=== PATIENT | female | born 1940 | race Caucasian/White ===

== ENCOUNTER 2018-03-16 10:22 | Inpatient (IN) | payer MEDICAID, MEDICARE ==
[~2018-03-16] VITALS: Ht 160 cm; Wt 47.6 kg
[~2018-03-16 10:22] MED LIST: ASPI-495 PO; DIGO125T PO; DULO20CA PO
--- NOTE | 2018-03-16 10:25 | NUR ---
[id number] FROM HOME FOR CP X 2 DAYS, NITRO X 2 IN THE FIELD. PT REFUSED ASA. NAD NOTED. VSS. SEEN BY MD FOR EVAL. SAFETY AND COMFORT MEASURES PROVIDED. WILL MONITOR.
--- NOTE | 2018-03-16 10:30 | NUR ---
HUMAN RESOURCES ADMINISTRATOR AT FOR BLOOD DRAW.
[2018-03-16 10:37] LABS: BASOPHILS % (AUTO) 0.4 % (0.0-2.0); EOSINOPHILS % (AUTO) 0.2 % (0.0-6.0); HEMATOCRIT 42 % (33-45); HEMOGLOBIN 13.9 g/dL (11.5-14.8); LYMPHOCYTES % (AUTO) 14.8 % (20.0-44.0); MEAN CORPUSCULAR HEMOGLOBIN 29 PG (26.0-33.0); MEAN CORPUSCULAR HGB CONC 33 g/dl (31.0-36.0); MEAN CORPUSCULAR VOLUME 90 fL (82-100); MONOCYTES # (AUTO) 0.5 /CMM (0.1-1.30); MONOCYTES % (AUTO) 7.1 % (2.0-12.0); NEUTROPHILS # (AUTO) 5.3 /CMM (1.8-8.9); NEUTROPHILS % (AUTO) 77.5 % (43.0-81.0); PLATELET COUNT (AUTO) 224 /CMM (150-450); RDW COEFFICIENT OF VARIATION 12.9 (11.5-15.0); RED BLOOD CELL COUNT(AUTO) 4.72 MIL/uL (4.0-5.2); WHITE BLOOD COUNT (AUTO) 6.8 K/uL (4.3-11.0)
[2018-03-16 10:47] LABS: CALCIUM, SERUM 10.2 mg/dL (8.5-10.1); CARBON DIOXIDE 24 mmol/L (21-32); CHLORIDE 106 mmol/L (98-107); CREATININE 0.7 mg/dL (0.6-1.3); GLUCOSE 148 mg/dL (74-106); POTASSIUM 3.7 mmol/L (3.5-5.1); SODIUM SERUM 140 mmol/L (136-145); UREA NITROGEN, BLOOD 14 mg/dL (7-18)
[2018-03-16 10:52] LABS: ALANINE AMINOTRANSFERASE 36 U/L (12-78); ALBUMIN 3.7 g/dL (3.4-5.0); ALKALINE PHOSPHATASE 69 U/L (46-116); ASPARTATE AMINOTRANSFERASE 21 U/L (15-37); BILIRUBIN,DIRECT 0.3 mg/dL (0.0-0.2); BILIRUBIN,TOTAL 1.5 mg/dL (0.2-1.0); TOTAL PROTEIN, SERUM 7.1 g/dL (6.4-8.2)
[2018-03-16 10:54] LABS: TROPONIN I 0.124 ng/mL (0.00-0.056)
[2018-03-16 11:03] LABS: INR 1.69 (0.85-1.15)
--- NOTE | 2018-03-16 11:22 | NUR ---
PAGED BUSINESS RECORDS MANAGER FRAME WIRER DR JACOBS, TRANSFERRED CALL TO DR JIN
--- NOTE | 2018-03-16 11:26 | NUR ---
PAGED TEO WHITTEN DNP FOR PANEL ADMISSION
[2018-03-16] MEDS ORDERED: FERR325T23 PO (11:34)
[2018-03-16] MEDS ORDERED: EZET10TA14 PO (11:34)
[2018-03-16] MEDS ORDERED: LORA1TAB PO (11:34)
[2018-03-16] MEDS ORDERED: ATOR20TA PO (11:34)
[2018-03-16] MEDS ORDERED: OMEG1CAP55 PO (11:34)
[2018-03-16] MEDS ORDERED: METO-356 PO (11:34)
[2018-03-16] MEDS ORDERED: DULO20CA PO (11:34)
[2018-03-16] MEDS ORDERED: GABA-532 PO (11:34)
[2018-03-16] MEDS ORDERED: ESOM40CA PO (11:34)
[2018-03-16] MEDS ORDERED: ISOS30TA6 PO (11:34)
--- NOTE | 2018-03-16 11:49 | NUR ---
REPAGED TEO WHITTEN DNP FOR PANEL ADMISSION
--- NOTE | 2018-03-16 12:13 | NUR ---
PATIENT ASSIGNED TELE 114-2
--- NOTE | 2018-03-16 12:35 | NUR ---
REPORT GIVEN TO GORDO ORTEZ FOR TELE 114-2.
[2018-03-16 13:00] VITALS: BP 189/92
[2018-03-16 13:45] VITALS: BP 198/90
--- NOTE | 2018-03-16 13:45 | NUR ---
C/O CHEST PAIN 10/10, SBP >190,PRN NITRO GIVEN SL X2 WITH RELIEF,TEO WHITTEN NOTIFIED.
[2018-03-16 13:50] VITALS: BP 168/88
[2018-03-16 13:58] VITALS: BP 144/70
[2018-03-16] MEDS ORDERED: LORAZEPAM 1 MG TABLET PO PRN (14:00)
[2018-03-16] MEDS ORDERED: hydrALAZINE HCL 50 MG TABLET PO STA (14:00)
--- NOTE | 2018-03-16 14:00 | NUR ---
RN INITIAL NOTE PATIENT AWAKE, ALERT AND ORIENTED. SON AT BEDSIDE. PATIENT STATES PAIN IS RELIEVED AT THIS TIME. SINUS RHYTHM WITH A FIRST DEGREE BLOCK ON TELE MONITOR. RESPIRATIONS ARE EVEN AND UNLABORED. SATING WELL ON 2 LITERS NASAL CANULA. SKIN IS WARM AND DRY TO TOUCH. IV SITE FLUSHED AND PATENT. SAFETY PRECAUTIONS IMPLEMENTED: BED IN LOCKED POSITION, LOW WITH TWO SIDE RAILS UP. WILL CONTINUE TO MONITOR.
--- NOTE | 2018-03-16 14:19 | NUR ---
TEO WHITTEN SEEN AND EVALUATED PATIENT AT BEDSIDE.
[2018-03-16] MEDS ORDERED: ZOLPIDEM TARTRATE 5 MG TABLET PO PRN (14:30)
[2018-03-16] MEDS ORDERED: ONDANSETRON HCL/PF 4 MG/2 ML VIAL IVP PRN (14:30)
[2018-03-16] MEDS ORDERED: ACETAMINOPHEN 325 MG TABLET PO PRN (14:30)
[2018-03-16] MEDS: ENOXAPARIN SODIUM 40 MG/0.4 ML DISP.SYRIN SQ SCH (15:35)
[2018-03-16 16:00] VITALS: BP 143/82
--- NOTE | 2018-03-16 16:00 | NUR ---
RN NOTE PATIENT COMPLAINING OF CHEST PAIN. ONE DOSE OF NITRO SR GIVEN AND ONE DOSE OF ATIVAN.
[2018-03-16] MEDS: GABAPENTIN 100 MG CAPSULE PO SCH (16:28)
[2018-03-16 16:48] LABS: INR 0.96 (0.87-1.13)
[2018-03-16] MEDS: ASPIRIN 81 MG TAB.CHEW PO SCH (18:16)
[2018-03-16] MEDS: ISOSORBIDE DINITRATE (20MG) 20 MG TABLET PO SCH (18:16)
[2018-03-16 19:12] LABS: THYROID STIMULATING HORMONE 2.304 uIU/mL (0.358-3.74)
[2018-03-16 20:00] VITALS: BP 93/62
[2018-03-16] MEDS: hydrALAZINE HCL 25 MG TABLET PO SCH (20:24)
[2018-03-16] MEDS ORDERED: hydrALAZINE HCL 25 MG TABLET PO SCH (21:00)
[2018-03-16] MEDS: MORPHINE SULFATE INJ 2 MG/ML DISP.SYRIN IV PRN (21:20)
[2018-03-16] MEDS ORDERED: ATORVASTATIN 10 MG TABLET PO SCH (22:00)
[2018-03-17] VITALS (15 sets, daily range): BP systolic 90–121; BP diastolic 43–76
[2018-03-17] MEDS: hydrALAZINE HCL 25 MG TABLET PO SCH ×3 (04:07→20:29)
[2018-03-17] MEDS: NITROGLYCERIN 30 GM TUBE TP SCH ×4 (05:13→17:13)
[2018-03-17 06:01] LABS: BASOPHILS % (AUTO) 0.2 % (0.0-2.0); EOSINOPHILS % (AUTO) 1.2 % (0.0-6.0); HEMATOCRIT 35 % (33-45); HEMOGLOBIN 11.6 g/dL (11.5-14.8); LYMPHOCYTES # (AUTO) 1.6 /CMM (0.8-4.8); LYMPHOCYTES % (AUTO) 30.6 % (20.0-44.0); MEAN CORPUSCULAR HEMOGLOBIN 31 PG (26.0-33.0); MEAN CORPUSCULAR HGB CONC 34 g/dl (31.0-36.0); MEAN CORPUSCULAR VOLUME 92 fL (82-100); MONOCYTES # (AUTO) 0.7 /CMM (0.1-1.30); MONOCYTES % (AUTO) 13.4 % (2.0-12.0); NEUTROPHILS # (AUTO) 2.9 /CMM (1.8-8.9); NEUTROPHILS % (AUTO) 54.6 % (43.0-81.0); PLATELET COUNT (AUTO) 202 /CMM (150-450); RDW COEFFICIENT OF VARIATION 13.6 (11.5-15.0); RED BLOOD CELL COUNT(AUTO) 3.77 MIL/uL (4.0-5.2); WHITE BLOOD COUNT (AUTO) 5.4 K/uL (4.3-11.0)
[2018-03-17 06:25] LABS: ALANINE AMINOTRANSFERASE 32 U/L (12-78); ALKALINE PHOSPHATASE 58 U/L (46-116); ASPARTATE AMINOTRANSFERASE 20 U/L (15-37); BILIRUBIN,TOTAL 0.9 mg/dL (0.2-1.0); CALCIUM, SERUM 8.6 mg/dL (8.5-10.1); CARBON DIOXIDE 27 mmol/L (21-32); CHLORIDE 104 mmol/L (98-107); CREATININE 0.6 mg/dL (0.6-1.3); GLUCOSE 94 mg/dL (74-106); MAGNESIUM 1.9 mg/dL (1.8-2.4); PHOSPHORUS 4.2 mg/dL (2.5-4.9); POTASSIUM 4.1 mmol/L (3.5-5.1); SODIUM SERUM 136 mmol/L (136-145); TOTAL PROTEIN, SERUM 6.1 g/dL (6.4-8.2); UREA NITROGEN, BLOOD 23 mg/dL (7-18)
[2018-03-17 06:27] LABS: IRON, SERUM 62 ug/dl (50-175); TOTAL IRON BINDING CAPACITY 276 ug/dl (250-450)
[2018-03-17 06:31] LABS: TROPONIN I 0.151 ng/mL (0.00-0.056)
[2018-03-17 06:35] LABS: CHOLESTEROL 150 mg/dL (<200); HDL CHOLESTEROL 63 mg/dL (40-60); LDL 75 mg/dL (0-99); THYROID STIMULATING HORMONE 4.393 uIU/mL (0.358-3.74); TRIGLYCERIDES 70 mg/dL (30-150)
--- NOTE | 2018-03-17 07:05 | NUR ---
RN NOTES RECEIVED PT ON BED, A/Ox4, RESPIRATION EVEN AND UNLABORED, ON 2L O2 N/C, NO SOB NOTED , ON TELE , SR WITH FIRST DEGREE AVB , HR IN 70'S , L FA IV SIT CLEAN, DRY AND INTACT, PT IS NPO THIS AM , SR UP x3, CALL LIGHT WITHIN EASY REACH, BED LOCKED AND IN LOWEST POSITION, CONTINUE TO MONITOR .
[2018-03-17] MEDS: PANTOPRAZOLE 40 MG TABLET.DR PO SCH (08:44)
[2018-03-17] MEDS: GABAPENTIN 100 MG CAPSULE PO SCH ×2 (09:00→17:18)
[2018-03-17] MEDS ORDERED: ISOSORBIDE MONONITRATE (30MG) 30 MG TAB.SR.24H PO SCH (09:00)
[2018-03-17] MEDS ORDERED: FERROUS SULFATE (325 MG) 325 MG/TAB TABLET PO SCH (09:00)
[2018-03-17] MEDS: ISOSORBIDE DINITRATE (20MG) 20 MG TABLET PO SCH ×2 (10:08→17:00)
[2018-03-17] MEDS: AMLODIPINE BESYLATE 10 MG TABLET PO SCH (10:09)
[2018-03-17] MEDS: METOPROLOL SUCCINATE 25 MG TAB.SR.24H PO SCH (10:09)
[2018-03-17] MEDS: MORPHINE SULFATE INJ 2 MG/ML DISP.SYRIN IV PRN ×2 (10:14→20:31)
[2018-03-17] MEDS: ASPIRIN 81 MG TAB.CHEW PO SCH (10:37)
[2018-03-17] MEDS: EZETIMIBE 10 MG TABLET PO SCH (10:37)
[2018-03-17] MEDS: DULOXETINE HCL 20 MG CAPSULE.DR PO SCH (10:37)
[2018-03-17 11:11] LABS: CALCIUM, IONIZED 5.5 mg/dL (4.5-5.6)
[2018-03-17] MEDS ORDERED: METOPROLOL TARTRATE INJ 5 MG/5 ML AMPUL ONE (12:32)
[2018-03-17] MEDS ORDERED: IOHEXOL-350 100 ML VIAL IV ONE (12:47)
[2018-03-17] MEDS ORDERED: CT SWABBABLE VALVE TRANS SET 1 EA INFUS.SET MC ONE (12:47)
[2018-03-17] MEDS ORDERED: IV NS 0.9% 250 ML IV ONE (12:48)
--- NOTE | 2018-03-17 13:40 | NUR ---
ICU/RN: 1300 Pt brought down to Radiology, VS 96/61, HR 73. Dr Stafford notified of borderline BP. Per MD, okay to give NTG spray only and monitor BP closely post procedure. 1315 NTG spray administered as order, pt HR 64; BP 91/43. 1340 Pt s/p CTA; VSS. Bedside report given to PÉREZ Narayan for ENMANUEL. SBP in low 100's, HR 67. Breathing even and unlabored on O2 2L/min via NC. Denies discomfort. Family at bedside.
--- NOTE | 2018-03-17 13:42 | NUR ---
RN NOTES PT BACK FORM RADIOLOGY DEP . VSS STABLE CONTINUE TO MONITOR
--- NOTE | 2018-03-17 15:59 | NUR ---
RN NOTES REPORT GIVEN TO NANI ORTEZ FOR CONTINUITY OF CARE .
--- NOTE | 2018-03-17 18:51 | NUR ---
INSTRUMENT MAN NOTES PATIENT IS RESTING IN BED, ALL NEEDS ADDRESSED, TEACHING DONE ABOUT PROCEDURE TOMORROW MORNING, 6AM RAILROAD BRAKE OPERATOR TO [facility], NPO AT MIDNIGHT, WILL ENDORSE TO CLINICAL LAB SPECIALIST FOR CONTINUITY OF CARE.
[2018-03-17] MEDS: ENOXAPARIN SODIUM 40 MG/0.4 ML DISP.SYRIN SQ SCH (20:32)
[2018-03-17] MEDS ORDERED: IV NS 0.9% 1,000 ML IV PRN (22:00)
[2018-03-18] VITALS: BP 104/78
[2018-03-18 04:00] VITALS: BP 129/80
[2018-03-18] MEDS: hydrALAZINE HCL 25 MG TABLET PO SCH ×2 (05:00→13:00)
[2018-03-18] MEDS: NITROGLYCERIN 0.4 MG/TAB BOTTLE SL PRN ×2 (05:01→06:02)
--- NOTE | 2018-03-18 05:45 | NUR ---
RN NOTE PATIENT REMAINED NPO AFTER MIDNIGHT, PATIENT IS AWAITING FOR AMBULANCE TO BE PICKED UP AND TRANSFERRED TO [facility] FOR CARDIAC CATH., PROVIDED REPORT TO SUSANA ORTEZ AT [facility] AT [phone]
[2018-03-18] MEDS: NITROGLYCERIN 30 GM TUBE TP SCH ×3 (06:00→12:00)
[2018-03-18 06:02] VITALS: BP 110/78
--- NOTE | 2018-03-18 06:05 | NUR ---
RN NOTE PATIENT LEFT TO [facility] VIA [facility] VIA AMBULANCE , PATIENT IS STABLE, CHEST PAIN IS WELL CONTROLLED WITH MEDICATIONS, NO CHEST PAIN AT THIS TIME, NO DISTRESS NOTED, VITAL SIGNS STABLE, SKIN IS INTACT, RIGHT AC 18 GAUGE AND LEFT FOREARM 20 GAUGE, NO S/S OF INFECTION/INFILTRATION NOTED, ALL BELONGINGS TAKEN, VERIFIED PRIOR WITH THE PATIENT, PATIENT IS ALERT/ORIENTED, ALL SAFETY MEASURES TAKEN
--- NOTE | 2018-03-18 07:19 | NUR ---
MS RN NOTE PATENT STILL AT [facility] FOR CARDIAC CATH , WILL F\U
[2018-03-18] MEDS: PANTOPRAZOLE 40 MG TABLET.DR PO SCH (07:30)
[2018-03-18] MEDS: AMLODIPINE BESYLATE 10 MG TABLET PO SCH (09:00)
[2018-03-18] MEDS: GABAPENTIN 100 MG CAPSULE PO SCH (09:00)
[2018-03-18] MEDS: ISOSORBIDE DINITRATE (20MG) 20 MG TABLET PO SCH (09:00)
[2018-03-18] MEDS: EZETIMIBE 10 MG TABLET PO SCH (09:00)
[2018-03-18] MEDS: DULOXETINE HCL 20 MG CAPSULE.DR PO SCH (09:00)
[2018-03-18] MEDS: ASPIRIN 81 MG TAB.CHEW PO SCH (09:00)
[2018-03-18] MEDS: METOPROLOL SUCCINATE 25 MG TAB.SR.24H PO SCH (09:00)
--- NOTE | 2018-03-18 09:08 | NUR ---
MS RN NOTE STILL AT [facility]
--- NOTE | 2018-03-18 14:41 | NUR ---
MS RN NOTE STILL AT [facility] FOR CARDIAC CATH
--- NOTE | 2018-03-18 17:00 | NUR ---
MS RN NOTE CALLED [facility], SPOKE WITH MARGIE ORTEZ STATED THAT PATIENT WILL STAY IN [facility] AND WILL TRANSFER TO ICU , CHARGE NURSE NOTIFIED
--- NOTE | 2018-03-18 17:30 | NUR ---
MS RN NOTE CALLED ASSEMBLY REPAIRER ROGELIO NOTIFIED THAT PATENT WILL STAY IN [facility] , STATED OK TO REMOVE FROM COMPUTER AND DISCHARGE
== END 2018-03-18 19:44 | disposition short-term general hospital (02) | DRG 190 ==
LOC: ER 10:23 → TELE1 12:47 → MEDSG1 03-17 19:47
PROVIDERS: ADMIT Nurse Practitioner Acute Care; ATTEND Nurse Practitioner Acute Care
DX: I25.10 Atherosclerotic heart disease of native coronary artery without angina pectoris (principal); I21.A1 Myocardial infarction type 2; E43 Unspecified severe protein-calorie malnutrition; E78.5 Hyperlipidemia, unspecified; E83.52 Hypercalcemia; F41.9 Anxiety disorder, unspecified; K21.9 Gastro-esophageal reflux disease without esophagitis; Z79.82 Long term (current) use of aspirin; Z79.899 Other long term (current) drug therapy; Z68.1 Body mass index [BMI] 19.9 or less, adult; E80.6 Other disorders of bilirubin metabolism; I10 Essential (primary) hypertension
CPT/HCPCS: 36415; 71045-TC; 75574; 80048-TC; 80053-TC; 80061-TC; 80076-TC; 82306; 82330; 82728-TC; 83540-TC; 83735-TC; 83970; 84100-TC; 84439-TC; 84443-TC; 84484-TC; 85025-TC; 85610-TC; 85730-TC; 87081-TC; 93307-TC; A4606; J1650; J2270; J3490; J7030; J7050; Q9967; Z7610

== ENCOUNTER 2018-08-13 07:26 | Outpatient (CLI) | payer MEDICARE, MEDICAID ==
[~2018-08-13 07:26] MED LIST changes: -ASPI-495 PO; +ATOR20TA PO; -DIGO125T PO; +ESOM40CA PO; +EZET10TA14 PO; +FERR325T23 PO; +GABA-532 PO; +ISOS30TA6 PO; +LORA1TAB PO; +METO-356 PO; +OMEG1CAP55 PO
[2018-08-13] MEDS ORDERED: REGADENOSON 0.4 MG/5 ML DISP.SYRIN IVP ONE (08:30)
== END 2018-08-13 23:59 | disposition home or self-care (01) ==
LOC: NM 07:26
PROVIDERS: ATTEND Internal Medicine Interventional Cardiology
DX: I25.10 Atherosclerotic heart disease of native coronary artery without angina pectoris (principal); I10 Essential (primary) hypertension; R07.9 Chest pain, unspecified
CPT/HCPCS: 78452; A9502; J2785

== ENCOUNTER 2021-09-16 11:12 | Emergency (ER) | payer MEDICARE, OTHER ==
[~2021-09-16] VITALS: Ht 165.1 cm; Wt 48.1 kg
[~2021-09-16 11:12] MED LIST changes: -EZET10TA14 PO; +EZET10TA16 PO; -ISOS30TA6 PO; +ISOS30TA86 PO; -METO-356 PO; +METO25TA4 PO
[2021-09-16 11:23] VITALS: BP 136/79
[2021-09-16] MEDS ORDERED: AMOX-430 PO (11:58)
== END 2021-09-16 12:05 | disposition home or self-care (01) ==
LOC: ER 11:14
DX: H66.91 Otitis media, unspecified, right ear (principal); I10 Essential (primary) hypertension; E78.5 Hyperlipidemia, unspecified; Z86.79 Personal history of other diseases of the circulatory system; I50.9 Heart failure, unspecified; Z60.2 Problems related to living alone; Z79.52 Long term (current) use of systemic steroids; Z79.891 Long term (current) use of opiate analgesic; Z79.899 Other long term (current) drug therapy

== ENCOUNTER 2021-12-19 14:19 | Emergency (ER) | payer MEDICARE, OTHER ==
[~2021-12-19] VITALS: Ht 165.1 cm; Wt 48.1 kg
[~2021-12-19 14:19] MED LIST changes: +AMOX-430 PO
--- NOTE | 2021-12-19 14:37 | NUR ---
BIB SELF C/O HEADACHE X 1WEEK. PER PT MUCH WORSE LAST COUPLE OF DAYS
--- NOTE | 2021-12-19 14:37 | NUR ---
PATIENT A/O X4. EVEN AND UNLABORED BREATHING ON RA. WILL CONTINUE TO MONITOR
--- NOTE | 2021-12-19 14:45 | NUR ---
SEEN BY DR VALLADARES
[2021-12-19] MEDS ORDERED: METOCLOPRAMIDE HCL 10 MG/2 ML VIAL IM ONE (15:00)
[2021-12-19] MEDS ORDERED: KETOROLAC TROMETHAMINE INJ 30 MG/ML VIAL IM ONE (15:00)
--- NOTE | 2021-12-19 15:30 | NUR ---
IV ACCESS ESTABLISHED R AC G#20, INTACT AND PATENT.
[2021-12-19] MEDS ORDERED: KETOROLAC TROMETHAMINE INJ 30 MG/ML VIAL ONE (15:42)
[2021-12-19] MEDS ORDERED: METOCLOPRAMIDE HCL 10 MG/2 ML VIAL ONE (15:42)
[2021-12-19] MEDS ORDERED: HYDR-4303 PO (16:28)
[2021-12-19] MEDS ORDERED: MORPHINE SULFATE INJ 2 MG/ML DISP.SYRIN IV ONE (16:30)
[2021-12-19] MEDS ORDERED: MORPHINE SULFATE INJ 2 MG/ML DISP.SYRIN ONE (16:43)
--- NOTE | 2021-12-19 17:17 | NUR ---
Patient discharged to home in stable condition. Written and verbal after care instructions given. Patient verbalizes understanding of instruction.
[2021-12-19 17:18] VITALS: BP 160/80
== END 2021-12-19 17:20 | disposition home or self-care (01) ==
LOC: ER 14:19
DX: G43.909 Migraine, unspecified, not intractable, without status migrainosus (principal); I11.0 Hypertensive heart disease with heart failure; I50.9 Heart failure, unspecified; E78.5 Hyperlipidemia, unspecified; Z79.899 Other long term (current) drug therapy
CPT/HCPCS: 70450; 96372 ×2; 96374; 99284; J1885; J2270; J2765

== ENCOUNTER 2022-01-26 11:17 | Inpatient (IN) | payer MEDICARE, MEDICAID ==
[~2022-01-26] VITALS: Ht 165.1 cm; Wt 47.6 kg
[~2022-01-26 11:17] MED LIST changes: +HYDR-4303 PO
[2022-01-26] MEDS ORDERED: IV NS 0.9% 1,000 ML BAG IV ONE (11:30)
--- NOTE | 2022-01-26 11:35 | NUR ---
RECIEVED PT CAME BY SUKHWINDER C/O SYNCOPY AND DIZZY AWAKE AND ALERT RESPIRATION SPONT AND EASY IVF ON LT ARM INFUSED AND PATENT SEEN BY DR. NIRANJAN PRIDE DROW BY LAB TACH
--- NOTE | 2022-01-26 12:00 | NUR ---
SHANELLE (BRANDEN SOTO) [phone] HERE AT BED SIDE
[2022-01-26 12:02] LABS: BASOPHILS % (AUTO) 0.9 % (0.0-2.0); EOSINOPHILS % (AUTO) 0.6 % (0.0-6.0); HEMATOCRIT 36 % (33-45); HEMOGLOBIN 11.9 g/dL (11.5-14.8); LYMPHOCYTES # (AUTO) 0.8 K/uL (0.8-4.8); LYMPHOCYTES % (AUTO) 20.4 % (20.0-44.0); MEAN CORPUSCULAR HGB CONC 33 g/dl (31.0-36.0); MEAN CORPUSCULAR VOLUME 90 fL (82-100); MONOCYTES # (AUTO) 0.3 K/uL (0.1-1.30); MONOCYTES % (AUTO) 9.2 % (2.0-12.0); NEUTROPHILS # (AUTO) 2.6 K/uL (1.8-8.9); NEUTROPHILS % (AUTO) 68.9 % (43.0-81.0); PLATELET COUNT (AUTO) 214 K/uL (150-450); RED BLOOD CELL COUNT(AUTO) 3.98 MIL/uL (4.0-5.2); WHITE BLOOD COUNT (AUTO) 3.8 K/uL (4.3-11.0)
[2022-01-26 12:35] LABS: CREATININE 0.8 mg/dL (0.6-1.3); POTASSIUM 4.3 mmol/L (3.5-5.1)
[2022-01-26 12:40] LABS: ALBUMIN 3.4 g/dL (3.4-5.0); BILIRUBIN,DIRECT 0.2 mg/dL (0.0-0.2); BILIRUBIN,TOTAL 1.1 mg/dL (0.2-1.0); TOTAL PROTEIN, SERUM 6.5 g/dL (6.4-8.2)
--- NOTE | 2022-01-26 13:00 | NUR ---
CONTENUE AND OBSERVE PT VS STABLE
--- NOTE | 2022-01-26 13:00 | NUR ---
Kt hernandez in [facility] - 01/26/22 at 1354 by OFE RESTING NO CHANGE
--- NOTE | 2022-01-26 13:30 | NUR ---
COVED SWAB DONE AND SEND TO LAB
[2022-01-26] MEDS ORDERED: RANO500T6 PO (13:39)
--- NOTE | 2022-01-26 13:58 | NUR ---
paged epic for panel admission.
--- NOTE | 2022-01-26 15:01 | NUR ---
WATING FOR ROOM
--- NOTE | 2022-01-26 16:29 | NUR ---
RESTING VS STABLE NO CHANGE
--- NOTE | 2022-01-26 18:05 | NUR ---
EATING DINNED TOLORATED WILL NO N/V
--- NOTE | 2022-01-26 18:16 | NUR ---
room [id number]
--- NOTE | 2022-01-26 18:19 | NUR ---
REPORT GIVEN TO NURSE ALEX FOR ENMANUEL
[2022-01-26] MEDS ORDERED: ZOLPIDEM TARTRATE 5 MG TABLET PO PRN (19:00)
[2022-01-26] MEDS ORDERED: MAGNESIUM HYDROXIDE 30 ML UDC PO PRN (19:00)
[2022-01-26] MEDS ORDERED: Z GUARD REMEDY 4 OZ OINT TP PRN (19:00)
[2022-01-26] MEDS ORDERED: ONDANSETRON HCL/PF 4 MG/2 ML VIAL IVP PRN (19:00)
[2022-01-26] MEDS ORDERED: MAG HYDROX/AL HYDROX/SIMETH 30 ML UDC PO PRN (19:00)
--- NOTE | 2022-01-26 19:30 | NUR ---
HOOKMANOCULAR CARE TECHNICIAN NOTE PT TRANSPORTED VIA GURNEY TO UNIT AT 1900. PT FROM HOME ADMITTED TO TELE FROM ER UNDER DR CALL FOR ADMITTING DX OF NSTEMI. A/O X3 AND ABLE TO MAKE NEEDS KNOWN. ANGUILLAN SPEAKING. PT STABLE ON ROOM AIR. NO SOB OR S/S OF RESPIRATORY DISTRESS. BREATHING EVEN AND UNLABORED. ON EXTERNAL FILTER PLANT OPERATOR READING SR WITH PACS HR 77 BPM. SKIN IS INTACT. IV ACCESS LAC 18 GAUGE RUNNING 1/2 NS @ 75 ML/HR. ORIENTED PT TO UNIT, STAFF, AND ROOM. ALL BELONGINGS ACCOUNTED FOR AND BELONGINGS LIST SIGNED. SAFETY PRECAUTIONS IN PLACE. BED IN LOWEST LOCKED POSITION, HOB ELEVATED, SIDE RAILS UP X3, AND CALL LIGHT AND TABLE WITHIN REACH. ALL NEEDS MET AT THIS TIME.
[2022-01-26] MEDS: ACETAMINOPHEN 325 MG TABLET PO PRN (19:52)
--- NOTE | 2022-01-26 19:52 | NUR ---
RN NOTE PT COMPLAINED OF HEADACHE. ADMINISTERED TYLENOL 650 MG ORDERED FOR HEADACHE. MADE COMFORTABLE IN BED. ALL NEEDS MET AT THIS TIME.
[2022-01-26] MEDS: ENOXAPARIN SODIUM 40 MG/0.4 ML DISP.SYRIN SQ SCH (19:54)
[2022-01-26 20:00] VITALS: BP 113/66
--- NOTE | 2022-01-26 20:33 | NUR ---
RN NOTE LAB REPORTED PT TROPONIN 60. INFORMED PROPERTY AND SUPPLY OFFICER ASTRID CARLOS WITH NO NEW ORDERS. CHARGE NURSE MK [place].
[2022-01-26 20:45] VITALS: BP 113/66
[2022-01-26] MEDS: IV 1/2NS 1000 ML 1,000 ML IV PRN (21:59)
[2022-01-27] MEDS: ACETAMINOPHEN 325 MG TABLET PO PRN (01:53)
--- NOTE | 2022-01-27 01:54 | NUR ---
RN NOTE PT COMPLAINED OF HEADACHE. ADMINISTERED TYLENOL 650 MG ORDERED FOR HEADACHE. SPOKE WITH ENCEPHALOGRAPHER DIAN WITH NEW ORDERS TO CHANGE FROM Q6H TO Q4H. NOTED AND CARRIED OUT.
[2022-01-27] MEDS ORDERED: ACETAMINOPHEN 325 MG TABLET PO PRN (02:00)
--- NOTE | 2022-01-27 05:52 | NUR ---
ORTHOSTATICS LAYING DOWN: BP 141/81, HR 67, R 20, T 97.7, O2 98% SITTING: BP 134/76, HR 69, R 20, T 97.7, O2 98% STANDING: BP 132/70, HR 75, R 20, T 97.7, O2 98%
[2022-01-27 05:55] VITALS: BP_SYST 132; BP_SYST 134; BP_SYST 141; BP_DIAS 70; BP_DIAS 76; BP_DIAS 81
--- NOTE | 2022-01-27 06:41 | NUR ---
GIRL FRIDAY CLOSING NOTE PT AWAKE IN BED. A/O X4 AND ABLE TO MAKE NEEDS KNOWN. PT STABLE ON ROOM AIR. NO SOB OR S/S OF RESPIRATORY DISTRESS. BREATHING EVEN AND UNLABORED. ON EXTERNAL EDGER FEEDER READING SR WITH PACS HR 75 BPM. IV ACCESS LAC 18 GAUGE RUNNING 1/2 NS @ 75 ML/HR. ALL DUE MEDS GIVEN ORDERED. SAFETY PRECAUTIONS IN PLACE. BED IN LOWEST LOCKED POSITION, HOB ELEVATED, SIDE RAILS UP X3, AND CALL LIGHT AND TABLE WITHIN REACH. ALL NEEDS MET AT THIS TIME AND WILL ENDORSE TO ONCOMING NURSE FOR ENMANUEL.
[2022-01-27 07:05] LABS: EOSINOPHILS % (AUTO) 1.5 % (0.0-6.0); HEMATOCRIT 33 % (33-45); HEMOGLOBIN 11.2 g/dL (11.5-14.8); LYMPHOCYTES # (AUTO) 1.2 K/uL (0.8-4.8); LYMPHOCYTES % (AUTO) 33.5 % (20.0-44.0); MEAN CORPUSCULAR HGB CONC 34 g/dl (31.0-36.0); MEAN CORPUSCULAR VOLUME 90 fL (82-100); MONOCYTES # (AUTO) 0.4 K/uL (0.1-1.30); MONOCYTES % (AUTO) 12.8 % (2.0-12.0); NEUTROPHILS # (AUTO) 1.8 K/uL (1.8-8.9); NEUTROPHILS % (AUTO) 51.2 % (43.0-81.0); PLATELET COUNT (AUTO) 193 K/uL (150-450); WHITE BLOOD COUNT (AUTO) 3.5 K/uL (4.3-11.0)
--- NOTE | 2022-01-27 07:29 | NUR ---
WEATHER ALGORITHM SCIENTIST OPENING NOTE RECEIVED PT AWAKE IN BED. PT A/O X3, ABLE TO MAKE NEEDS KNOWN. PT ON O2 RA, TOLERATING WELL. BREATHING UNLABORED. NOT IN ANY SIGN OF DISTRESS. ON INSTANT PRINT OPERATOR WITH CURRENT READING OF SINUS RHYTHM, HR 70. NO C/O OF CARDIAC DISTRESS VOICED AT THIS TIME. IV ACCESS ON LAC G#18 INTACT AND PATENT WITH 1/2 NS INFUSING AT 75ML/HR. SAFETY MEASURES IN PLACE: BED IN LOWEST AND LOCKED POSITION, SIDE RAILS UP X2, AND CALL LIGHT WITHIN REACH. WILL CONTINUE TO MONITOR PT.
[2022-01-27] MEDS ORDERED: PANTOPRAZOLE 40 MG TABLET.DR PO SCH (07:30)
[2022-01-27 07:34] LABS: CALCIUM, SERUM 8.7 mg/dL (8.5-10.1); CREATININE 0.7 mg/dL (0.6-1.3); PHOSPHORUS 3.4 mg/dL (2.5-4.9); POTASSIUM 4.4 mmol/L (3.5-5.1)
[2022-01-27 07:41] LABS: THYROID STIMULATING HORMONE 2.361 uIU/mL (0.358-3.74)
[2022-01-27 08:00] VITALS: BP 139/73
[2022-01-27] MEDS ORDERED: LORAZEPAM 1 MG TABLET PO PRN (08:30)
[2022-01-27] MEDS: ATORVASTATIN 40 MG TABLET PO SCH (08:42)
[2022-01-27] MEDS: ASPIRIN 81 MG TAB.CHEW PO SCH (08:42)
[2022-01-27] MEDS: RANOLAZINE 500 MG TAB.ER.12H PO SCH ×2 (08:42→20:32)
[2022-01-27] MEDS: GABAPENTIN 300 MG CAPSULE PO SCH (08:43)
[2022-01-27] MEDS: ISOSORBIDE MONONITRATE (30MG) 30 MG TAB.SR.24H PO SCH (08:43)
[2022-01-27] MEDS: METOPROLOL SUCCINATE 25 MG TAB.SR.24H PO SCH (08:44)
[2022-01-27] MEDS: DULOXETINE HCL 20 MG CAPSULE.DR PO SCH (08:45)
[2022-01-27] MEDS ORDERED: LOVAZA PO SCH (09:00)
[2022-01-27] MEDS: EZETIMIBE 10 MG TABLET PO SCH (09:02)
--- NOTE | 2022-01-27 10:35 | NUR ---
RN NOTE CONSENT FOR CT CORONARY ANGIO OBTAINED AND SIGNED BY PT.
--- NOTE | 2022-01-27 11:38 | NUR ---
RN NOTE PT LEFT UNIT FOR CT CORONARY ANGIO PROCEDURE.
[2022-01-27] MEDS ORDERED: IOHEXOL-350 100 ML VIAL IV ONE (11:39)
[2022-01-27] MEDS ORDERED: NITROGLYCERIN 0.4 MG/TAB BOTTLE ONE (11:39)
[2022-01-27] MEDS ORDERED: METOPROLOL TARTRATE INJ 5 MG/5 ML AMPUL ONE (11:40)
[2022-01-27] MEDS ORDERED: IV NS 0.9% 250 ML IV ONE (11:40)
[2022-01-27] MEDS ORDERED: CT SWABBABLE VALVE TRANS SET 1 EA INFUS.SET MC ONE (11:40)
--- NOTE | 2022-01-27 12:12 | NUR ---
RN NOTES END PREPROCEDURE AT THIS TIME PATIENT TOLERATED PROCEDURE WELL BP- 108/57, P-53 O2-97% ROOM AIR. ADMINISTERED METOPROLOL 5 MG/ML IV PUSH, AND NITRO ONE TAB SL EXPLAINED SIDE EFFECTS, PATIENT VERBALIZED UNDERSTANDING .PATIENT HAS NO ACUTE RESPIRATORY DISTRESS, REFUSED PAIN, ESCORTED PATIENT BACK TO THE ROOM VIA STABLE CONDITION . RN AWARE OF PATIENT BACK TO THE ROOM. WILL FOLLOW PLAN OF CARE.
--- NOTE | 2022-01-27 12:24 | NUR ---
RN NOTE PT BACK FROM CTCA PROCEDURE.
[2022-01-27 16:00] VITALS: BP 112/69
--- NOTE | 2022-01-27 16:58 | NUR ---
RN NOTE PT C/O HEADACHE. TYLENOL 650MG PO GIVEN ORDERED PRN. WILL MONITOR AND REASSESS PT.
[2022-01-27] MEDS: IV 1/2NS 1000 ML 1,000 ML IV PRN (17:03)
[2022-01-27] MEDS: ENOXAPARIN SODIUM 40 MG/0.4 ML DISP.SYRIN SQ SCH (18:35)
--- NOTE | 2022-01-27 19:20 | NUR ---
PHYTOCHEMISTRY PROFESSOR OPENING NOTE RECEIVED PATIENT IN BED. A/OX4. NO S/S OF APPARENT DISTRESS IN ROOM AIR. DENIES PAIN NOR DISCOMFORT AT THIS TIME. TELE MONITOR READING SR 63 BPM. IV 1/2 NS RUNNING @75MLS/HR. ENCOURAGED WITH THE USE OF CALL LIGHT. SAFETY IN PLACE. WILL CONTINUE WITH PATIENT'S PLAN OF CARE.
--- NOTE | 2022-01-27 19:29 | NUR ---
JOINT MACHINE OPERATOR CLOSING NOTE PT AWAKE IN BED. PT A/O X3, ABLE TO MAKE NEEDS KNOWN. PT ON RA, TOLERATING WELL. BREATHING UNLABORED. NOT IN ANY SIGN OF DISTRESS. ON BRIM STITCHER WITH CURRENT READING OF SINUS RHYTHM, HR 68. NO C/O OF CARDIAC DISTRESS VOICED AT THIS TIME. IV ACCESS ON LAC G#18 INTACT AND PATENT WITH 1/2 NS INFUSING AT 75ML/HR. ALL NEEDS ATTENDED. KEPT CLEAN AND COMFORTABLE. SAFETY MEASURES IN PLACE: BED IN LOWEST AND LOCKED POSITION, SIDE RAILS UP X2, AND CALL LIGHT WITHIN REACH. ENDORSED TO DNA ANALYST NURSE FOR ENMANUEL.
[2022-01-27 20:00] VITALS: BP 122/60
[2022-01-28] VITALS: BP 146/74
[2022-01-28] MEDS: IV 1/2NS 1000 ML 1,000 ML IV PRN (05:55)
--- NOTE | 2022-01-28 06:39 | NUR ---
CAVING GUIDE CLOSING NOTE PATIENT IN BED, A/OX4. NO S/S OF APPARENT DISTRESS IN ROOM AIR. DENIES PAIN AND ANY DISCOMFORT AT THIS TIME. PATIENT AMBULATORY WITH STEADY GAIT. TELE MONITOR READING SR THROUGHOUT SHIFT WITH 61 BPM THIS AM. L. FA #20G RUNNING / NS @ 75MLS/HR. NEEDS ATTENDED. ALL SCHEDULED MEDICATION ADMINISTERED. WILL ENDORSE TO MORNING SHIFT RN FOR CONTINUITY OF CARE.
--- NOTE | 2022-01-28 07:22 | NUR ---
BREAKER MACHINE OPERATOR OPENING NOTE RECEIVED PT ASLEEP IN BED, EASILY AROUSED. PT A/O X4, ABLE TO MAKE NEEDS KNOWN. PT ON RA, TOLERATING WELL. BREATHING UNLABORED. NOT IN ANY SIGN OF DISTRESS. ON GUEST SERVICE HOST WITH CURRENT READING OF SINUS WITH BBB, HR 65. NO C/O OF CARDIAC DISTRESS VOICED AT THIS TIME. IV ACCESS ON LFA G#20 INTACT AND PATENT WITH 1/2 NS INFUSING AT 75ML/HR. SAFETY MEASURES IN PLACE: BED IN LOWEST AND LOCKED POSITION, SIDE RAILS UP X2, AND CALL LIGHT WITHIN REACH. WILL CONTINUE TO MONITOR PT.
[2022-01-28 07:29] LABS: BASOPHILS % (AUTO) 0.6 % (0.0-2.0); HEMATOCRIT 36 % (33-45); LYMPHOCYTES # (AUTO) 1.1 K/uL (0.8-4.8); LYMPHOCYTES % (AUTO) 29.4 % (20.0-44.0); MEAN CORPUSCULAR HGB CONC 34 g/dl (31.0-36.0); MEAN CORPUSCULAR VOLUME 90 fL (82-100); MONOCYTES # (AUTO) 0.4 K/uL (0.1-1.30); MONOCYTES % (AUTO) 11.2 % (2.0-12.0); NEUTROPHILS # (AUTO) 2.2 K/uL (1.8-8.9); NEUTROPHILS % (AUTO) 56.8 % (43.0-81.0); PLATELET COUNT (AUTO) 196 K/uL (150-450); RED BLOOD CELL COUNT(AUTO) 3.97 MIL/uL (4.0-5.2); WHITE BLOOD COUNT (AUTO) 3.9 K/uL (4.3-11.0)
[2022-01-28] MEDS ORDERED: PANTOPRAZOLE 40 MG TABLET.DR PO SCH (07:30)
[2022-01-28 08:00] VITALS: BP 150/95
[2022-01-28] MEDS: DULOXETINE HCL 20 MG CAPSULE.DR PO SCH (08:13)
[2022-01-28] MEDS: GABAPENTIN 300 MG CAPSULE PO SCH (08:14)
[2022-01-28] MEDS: ATORVASTATIN 40 MG TABLET PO SCH (08:14)
[2022-01-28] MEDS: EZETIMIBE 10 MG TABLET PO SCH (08:14)
[2022-01-28] MEDS: ASPIRIN 81 MG TAB.CHEW PO SCH (08:14)
[2022-01-28] MEDS: ISOSORBIDE MONONITRATE (30MG) 30 MG TAB.SR.24H PO SCH (08:15)
[2022-01-28] MEDS: METOPROLOL SUCCINATE 25 MG TAB.SR.24H PO SCH (08:15)
[2022-01-28] MEDS: RANOLAZINE 500 MG TAB.ER.12H PO SCH (08:18)
[2022-01-28 08:41] LABS: ALBUMIN 3.6 g/dL (3.4-5.0); BILIRUBIN,TOTAL 0.7 mg/dL (0.2-1.0); CALCIUM, SERUM 9.3 mg/dL (8.5-10.1); CREATININE 0.6 mg/dL (0.6-1.3); PHOSPHORUS 3.3 mg/dL (2.5-4.9); TOTAL PROTEIN, SERUM 6.9 g/dL (6.4-8.2)
[2022-01-28] MEDS ORDERED: ENSURE ENLIVE 237 ML LIQUID (VANILLA) PO SCH (09:00)
--- NOTE | 2022-01-28 09:30 | NUR ---
RN NOTE RECEIVED A CALL FROM RICK SPRINGER AT 0915, REPORTED CRITICAL LAB VALUE OF TROPONIN LEVEL OF 63. DR. BARRETT MADE AWARE OF CRITICAL LABS WITH NO NEW ORDER AT THIS TIME.
[2022-01-28] MEDS ORDERED: ASPI-1169 PO (13:55)
[2022-01-28 16:00] VITALS: BP 121/81
--- NOTE | 2022-01-28 18:10 | NUR ---
CORPORATE COMPLIANCE OFFICER NOTE PT DISCHARGED TO HOME IN STABLE CONDITION. PT A/O X4, ABLE TO MAKE NEEDS KNOWN. ON RA, TOLERATING WELL WITH SPO2 97%. BREATHING EVEN AND UNLABORED. NOT IN ANY SIGN OF RESPIRATORY DISTRESS. V/S TAKEN, STABLE, AND RECORDED. SKIN IS INTACT WITH NO SKIN ISSUES NOTED. ALL BELONGINGS ACCOUNTED FOR. ALL DISCHARGED INSTRUCTIONS AND HEALTH TEACHINGS GIVEN TO PT AND PT VERBALIZED UNDERSTANDING. EXIT FOLDER GIVEN TO PT. IV ACCESS IN LFA G #20 REMOVED WITH NO ACTIVE BLEEDING NOTED. DRY PRESSURE DRESSING APPLIED AT SITE. PT LEFT UNIT AT 1755 VIA WHEELCHAIR ACCOMPANIED BY SHREE ELIZONDO. PT IS PICKED UP BY SON. ENGLE AND CHARGED NURSE AWARE OF DISCHARGED.
== END 2022-01-28 18:00 | disposition home or self-care (01) | DRG 73 ==
LOC: ER 11:19 → TELE 18:47 → MED 01-28 11:12
PROVIDERS: ADMIT Student in an Organized Health Care Education/Training Program; ATTEND Student in an Organized Health Care Education/Training Program
DX: G90.8 Other disorders of autonomic nervous system (principal); I21.A1 Myocardial infarction type 2; Z20.822 Contact with and (suspected) exposure to COVID-19; I50.9 Heart failure, unspecified; I11.0 Hypertensive heart disease with heart failure; I25.10 Atherosclerotic heart disease of native coronary artery without angina pectoris; Z79.899 Other long term (current) drug therapy; E78.5 Hyperlipidemia, unspecified; K21.9 Gastro-esophageal reflux disease without esophagitis; F41.9 Anxiety disorder, unspecified; I25.2 Old myocardial infarction; Z95.5 Presence of coronary angioplasty implant and graft
CPT/HCPCS: 36415; 70450-TC; 71045-TC; 75574; 80048-TC; 80053-TC; 80061-TC; 80076-TC; 83735-TC; 83880; 84100-TC; 84443-TC; 84484-TC; 85025-TC; 87081-TC; 93307-TC; 97116-TC; 97530-TC; C9803; G0378; J1650; J3490; J7050; Q9967

== ENCOUNTER 2025-06-22 15:20 | Inpatient (IN) | payer MEDICARE, OTHER ==
[~2025-06-22] VITALS: Ht 165.1 cm; Wt 48.1 kg
[~2025-06-22 15:20] MED LIST changes: -AMOX-430 PO; +ASPI-1169 PO; +RANO500T6 PO
[2025-06-22] MEDS ORDERED: ASPI-1169 PO (15:55)
[2025-06-22] MEDS ORDERED: CHOL500062 PO (15:55)
[2025-06-22] MEDS ORDERED: LOSA50TA39 PO (15:55)
[2025-06-22] MEDS ORDERED: CYAN100010 PO (15:55)
[2025-06-22] MEDS ORDERED: OLME40TA18 PO (15:55)
[2025-06-22 16:01] LABS: PLATELET COUNT (AUTO) 209 K/uL (150-450); RED BLOOD CELL COUNT(AUTO) 4.21 MIL/uL (4.0-5.2); RED CELL DISTRIBUTION WIDTH 13.3 % (11.5-15.0); WHITE BLOOD COUNT (AUTO) 4.3 K/uL (4.3-11.0)
[2025-06-22] MEDS ORDERED: MECLIZINE HCL 25 MG TABLET ONE (16:03)
[2025-06-22] MEDS: MECLIZINE HCL 25 MG TABLET PO ONE (16:04)
[2025-06-22 16:08] LABS: CALCIUM, SERUM 9.2 mg/dL (8.5-10.1); CREATININE 0.7 mg/dL (0.6-1.3); SODIUM SERUM 138 mmol/L (136-145); UREA NITROGEN, BLOOD 14 mg/dL (7-18)
[2025-06-22 16:22] LABS: ASPARTATE AMINOTRANSFERASE 18 U/L (15-37); NT-PRO BNP 562 pg/mL (0-125); TOTAL PROTEIN, SERUM 7.5 g/dL (6.4-8.2)
[2025-06-22] MEDS ORDERED: ASPIRIN 325 MG TABLET ONE (17:32)
[2025-06-22] MEDS: ASPIRIN 325 MG TABLET PO ONE (17:32)
[2025-06-22 18:52] VITALS: BP 203/88; TEMP 96.8; O2SAT 100
[2025-06-22] MEDS: hydrALAZINE HCL IV 20 MG VIAL IV PRN (18:52)
[2025-06-22] MEDS ORDERED: ONDANSETRON HCL/PF 4 MG/2 ML VIAL IVP PRN (19:00)
[2025-06-22] MEDS ORDERED: DIAZEPAM 2 MG TABLET PO PRN (19:00)
[2025-06-22] MEDS ORDERED: Z GUARD REMEDY 4 OZ OINT TP PRN (19:00)
[2025-06-22] MEDS: ENOXAPARIN SODIUM 40 MG/0.4 ML DISP.SYRIN SQ SCH (19:57)
[2025-06-22 20:00] VITALS: BP 157/92; TEMP 97.2; O2SAT 99
[2025-06-23] VITALS: BP 135/82; TEMP 97.2; O2SAT 97
[2025-06-23 04:00] VITALS: BP 140/78; TEMP 97.2; O2SAT 100
[2025-06-23 06:48] LABS: PLATELET COUNT (AUTO) 202 K/uL (150-450); RED BLOOD CELL COUNT(AUTO) 4.21 MIL/uL (4.0-5.2); RED CELL DISTRIBUTION WIDTH 13.4 % (11.5-15.0); WHITE BLOOD COUNT (AUTO) 3.9 K/uL (4.3-11.0)
[2025-06-23 07:06] LABS: CALCIUM, SERUM 9.1 mg/dL (8.5-10.1); CREATININE 0.7 mg/dL (0.6-1.3); PHOSPHORUS 3.8 mg/dL (2.5-4.9); SODIUM SERUM 141.0 mmol/L (136-145); UREA NITROGEN, BLOOD 16.0 mg/dL (7-18)
[2025-06-23 07:19] LABS: LDL 135.0 mg/dL (0-99)
[2025-06-23 07:52] LABS: IRON, SERUM 63.0 ug/dl (50-175)
[2025-06-23] MEDS: PANTOPRAZOLE 40 MG TABLET.DR PO SCH (07:57)
[2025-06-23 08:00] VITALS: BP 163/92; TEMP 98.4; O2SAT 96
[2025-06-23] MEDS ORDERED: LORAZEPAM 1 MG TABLET PO PRN (09:00)
[2025-06-23] MEDS: EZETIMIBE 10 MG TABLET PO SCH (09:24)
[2025-06-23] MEDS: METOPROLOL SUCCINATE 25 MG TAB.SR.24H PO SCH (09:24)
[2025-06-23] MEDS: ISOSORBIDE MONONITRATE (30MG) 30 MG TAB.SR.24H PO SCH (09:24)
[2025-06-23] MEDS: ASPIRIN 81 MG TAB.CHEW PO SCH (09:25)
[2025-06-23] MEDS: LOSARTAN POTASSIUM 50 MG TABLET PO SCH (09:25)
[2025-06-23] MEDS: RANOLAZINE 500 MG TAB.ER.12H PO SCH (09:25)
[2025-06-23 12:00] VITALS: BP 104/72; TEMP 98.1; O2SAT 98
[2025-06-23 16:00] VITALS: BP 93/60; TEMP 98.2; O2SAT 97
[2025-06-23] MEDS: ACETAMINOPHEN 325 MG TABLET PO PRN (16:18)
[2025-06-23 20:00] VITALS: BP 105/65; TEMP 97.3; O2SAT 98
[2025-06-23] MEDS: ATORVASTATIN 40 MG TABLET PO SCH (21:09)
[2025-06-24] VITALS (7 sets, daily range): BP systolic 113–149; BP diastolic 66–74; TEMP 97.5–98.2; O2SAT 95–99
[2025-06-24] MEDS ORDERED: EZET10TA32 PO (11:40)
[2025-06-24] MEDS ORDERED: LOSA50TA39 PO (11:40)
[2025-06-24] MEDS ORDERED: RANO500T6 PO (11:40)
[2025-06-24] MEDS ORDERED: ATOR40TA PO (11:40)
[2025-06-24] MEDS ORDERED: METO25TA4 PO (11:40)
[2025-06-24] MEDS ORDERED: ISOS30TA86 PO (11:40)
[2025-06-24] MEDS ORDERED: ASPI-1169 PO (11:40)
== END 2025-06-24 12:50 | disposition home health service (06) | DRG 149 ==
LOC: ER 15:22 → TELE1 16:56
PROVIDERS: ADMIT Nurse Practitioner Acute Care; ATTEND Nurse Practitioner Acute Care
DX: H81.10 Benign paroxysmal vertigo, unspecified ear (principal); I21.A1 Myocardial infarction type 2; I16.0 Hypertensive urgency; I10 Essential (primary) hypertension; I25.10 Atherosclerotic heart disease of native coronary artery without angina pectoris; Z79.82 Long term (current) use of aspirin; K21.9 Gastro-esophageal reflux disease without esophagitis; Z79.899 Other long term (current) drug therapy; F41.9 Anxiety disorder, unspecified; E78.5 Hyperlipidemia, unspecified; H93.12 Tinnitus, left ear
CPT/HCPCS: 36415; 70450-TC; 70544-TC; 70551-TC; 71045-TC; 80048-TC; 80061-TC; 80076-TC; 82962-TC; 83540-TC; 83735-TC; 83880; 84100-TC; 84443-TC; 84484-TC; 85025-TC; 93307-TC; 97112-TC; 97116-TC; 97530-TC; G0378; J0360; J1650; J8597